=== PATIENT | female | born 1965 | race Caucasian/White ===

== ENCOUNTER → 2024-03-14 11:59 | Outpatient (REF) | payer OTHER, SELFPAY | LOC: HWWDC 11:59 | PROVIDERS: ATTENDING PHYSICIAN Nurse Practitioner Adult Health | DX: Z12.31 Encounter for screening mammogram for malignant neoplasm of breast (principal) | CPT/HCPCS: 77063; 77067 ==

== ENCOUNTER → 2024-04-04 12:02 | Outpatient (REF) | payer OTHER, SELFPAY | LOC: HWRAD 12:02 | PROVIDERS: ATTENDING PHYSICIAN Nurse Practitioner Adult Health | DX: M79.672 Pain in left foot (principal) | CPT/HCPCS: 73630 ==